=== PATIENT | male | born 1980 | race Caucasian/White ===

== ENCOUNTER 2016-07-09 16:36 | Emergency (ER) | payer MEDICARE, OTHER | END 2016-07-09 19:30 | LOC: ER 16:36 | DX: J44.0 Chronic obstructive pulmonary disease with (acute) lower respiratory infection (principal); J18.9 Pneumonia, unspecified organism; M06.9 Rheumatoid arthritis, unspecified; F17.210 Nicotine dependence, cigarettes, uncomplicated; R06.02 Shortness of breath; Z79.82 Long term (current) use of aspirin; Z79.899 Other long term (current) drug therapy; K50.90 Crohn's disease, unspecified, without complications | CPT/HCPCS: 99284; 99284-25 ==

== ENCOUNTER 2016-07-09 16:36 | Inpatient (IN) | payer MEDICARE, OTHER ==
[~2016-07-09] VITALS: Ht 182.9 cm; Wt 74.4 kg
[2016-07-09 17:09] LABS: BASO % 0.1 % (0.2-1.2); EOS # 0.1 10_X3_uL (0.0-0.5); EOS % 0.6 % (0.8-7.0); GRAN # 6.6 10_X3_uL (1.8-5.4); GRAN % 80.6 % (34.0-67.9); HEMATOCRIT 40.8 % (40-51); HEMOGLOBIN 13.4 g/dL (13.7-17.5); LYMPH # 0.8 10_X3_uL (1.3-3.6); LYMPH % 10.1 % (21.8-53.1); MEAN CORPUSCULAR HEMOGLOBIN 30.5 pg (27.0-33.0); MEAN CORPUSCULAR HGB CONC 32.8 g/dL (32.0-36.0); MEAN CORPUSCULAR VOLUME 92.9 fL (79-92); MEAN PLATELET VOLUME 11.5 fl (7.5-11.5); MONO # 0.7 10_X3_uL (0.3-0.8); MONO % 8.6 % (5.3-12.2); RED BLOOD COUNT 4.39 x10_6/uL (4.6-6.1); RED CELL DISTRIBUTION WIDTH 14.9 % (11.6-14.4); WHITE BLOOD COUNT 8.2 x10_3/uL (4.2-9.1)
[2016-07-09 17:23] LABS: BLOOD UREA NITROGEN 13 mg/dL (7-18); CALCIUM 8.3 mg/dL (8.7-10.7); CARBON DIOXIDE 24 mmol/L (21-32); CREATINE KINASE 35 U/L (35-232); CREATININE 0.7 mg/dL (0.6-1.3); GLUCOSE,RANDOM 118 mg/dL (70-99); POTASSIUM 4.1 mmol/L (3.5-5.1); SODIUM 130 mmol/L (136-145)
[2016-07-09 17:29] LABS: PLATELET COUNT 366 x10_3/uL (163-337)
[2016-07-10 07:28] LABS: HEMATOCRIT 38.5 % (40-51); HEMOGLOBIN 12.3 g/dL (13.7-17.5); MEAN CORPUSCULAR HEMOGLOBIN 30.2 pg (27.0-33.0); MEAN CORPUSCULAR HGB CONC 31.9 g/dL (32.0-36.0); MEAN CORPUSCULAR VOLUME 94.6 fL (79-92); MEAN PLATELET VOLUME 11.8 fl (7.5-11.5); RED BLOOD COUNT 4.07 x10_6/uL (4.6-6.1); WHITE BLOOD COUNT 5.4 x10_3/uL (4.2-9.1)
[2016-07-10 12:40] LABS: BLOOD UREA NITROGEN 10 mg/dL (7-18); CALCIUM 8.6 mg/dL (8.7-10.7); CARBON DIOXIDE 27 mmol/L (21-32); CREATININE 0.7 mg/dL (0.6-1.3); GLUCOSE,RANDOM 82 mg/dL (70-99); SODIUM 136 mmol/L (136-145)
[2016-07-11 07:28] LABS: HEMATOCRIT 40.7 % (40-51); HEMOGLOBIN 13.2 g/dL (13.7-17.5); MEAN CORPUSCULAR HEMOGLOBIN 30.5 pg (27.0-33.0); MEAN CORPUSCULAR HGB CONC 32.4 g/dL (32.0-36.0); MEAN PLATELET VOLUME 11.2 fl (7.5-11.5); RED BLOOD COUNT 4.33 x10_6/uL (4.6-6.1); RED CELL DISTRIBUTION WIDTH 14.9 % (11.6-14.4); WHITE BLOOD COUNT 5.8 x10_3/uL (4.2-9.1)
[2016-07-11 08:14] LABS: ALBUMIN 2.8 gm/dL (3.4-5.0); ALKALINE PHOSPHATASE 242 U/L (50-136); ALT/SGPT 43 U/L (7.53-40.17); AST/SGOT 48 U/L (6.66-35.34); BILIRUBIN,TOTAL 0.86 mg/dL (0.0-1.0); BLOOD UREA NITROGEN 9 mg/dL (7-18); CALCIUM 8.7 mg/dL (8.7-10.7); CARBON DIOXIDE 27 mmol/L (21-32); CREATININE 0.8 mg/dL (0.6-1.3); GLUCOSE,RANDOM 111 mg/dL (70-99); POTASSIUM 4.8 mmol/L (3.5-5.1); SODIUM 136 mmol/L (136-145); TOTAL PROTEIN 7.8 gm/dL (6.4-8.2)
[2016-07-12 06:33] LABS: HEMATOCRIT 39.6 % (40-51); HEMOGLOBIN 12.6 g/dL (13.7-17.5); MEAN CORPUSCULAR HEMOGLOBIN 29.9 pg (27.0-33.0); MEAN CORPUSCULAR HGB CONC 31.8 g/dL (32.0-36.0); MEAN CORPUSCULAR VOLUME 94.1 fL (79-92); MEAN PLATELET VOLUME 11.5 fl (7.5-11.5); RED BLOOD COUNT 4.21 x10_6/uL (4.6-6.1); RED CELL DISTRIBUTION WIDTH 14.5 % (11.6-14.4); WHITE BLOOD COUNT 4.4 x10_3/uL (4.2-9.1)
[2016-07-12 06:47] LABS: ALBUMIN 2.8 gm/dL (3.4-5.0); ALKALINE PHOSPHATASE 250 U/L (50-136); ALT/SGPT 39 U/L (7.53-40.17); AST/SGOT 43 U/L (6.66-35.34); BILIRUBIN,TOTAL 0.74 mg/dL (0.0-1.0); BLOOD UREA NITROGEN 11 mg/dL (7-18); CALCIUM 8.8 mg/dL (8.7-10.7); CARBON DIOXIDE 30 mmol/L (21-32); CREATININE 0.8 mg/dL (0.6-1.3); GLUCOSE,RANDOM 112 mg/dL (70-99); POTASSIUM 4.9 mmol/L (3.5-5.1); SODIUM 136 mmol/L (136-145)
[2016-07-14 08:39] LABS: HBS AG SCREEN Non Reactive (NR); HCV Non Reactive (NR)
== END 2016-07-12 11:30 | disposition home or self-care (01) | DRG 190 ==
LOC: ER 16:36 → MS 19:30 → UNDODEPER 07-12 20:03
PROVIDERS: Internal Medicine; ADMIT Family Medicine
PROC: 3E0234Z Introduction of Serum, Toxoid and Vaccine into Muscle, Percutaneous Approach (ICD-10-PCS; principal; 2016-07-10)
DX: J44.0 Chronic obstructive pulmonary disease with (acute) lower respiratory infection (principal); J15.7 Pneumonia due to Mycoplasma pneumoniae; K50.90 Crohn's disease, unspecified, without complications; R64 Cachexia; J44.1 Chronic obstructive pulmonary disease with (acute) exacerbation; M06.9 Rheumatoid arthritis, unspecified; R07.81 Pleurodynia; Z80.9 Family history of malignant neoplasm, unspecified; Z82.49 Family history of ischemic heart disease and other diseases of the circulatory system; Z79.899 Other long term (current) drug therapy; Z79.1 Long term (current) use of non-steroidal anti-inflammatories (NSAID); Z23 Encounter for immunization; G47.00 Insomnia, unspecified
CPT/HCPCS: 36415; 71260; 80048; 80053; 80074; 82550; 82553; 83605; 85025; 86738; 87040; 87070; 87205; 87449; 90732; 93005; 94640; 96365; 99070; 99284; 99284-25; G0009; J7040; J7050; Q9967